=== PATIENT | male | born 1955 | race Caucasian/White ===

== ENCOUNTER 2016-08-15 16:30 | Emergency (ER) | payer OTHER ==
[2016-08-15 16:57] VITALS: BP 104/78; PULSE 81; TEMP 97.8; BMI 31.1
[2016-08-15] MEDS ORDERED: CLINDAMYCIN 600MG PREMIX IVPB 50 ML IVPB ONE (16:58)
--- NOTE | 2016-08-15 16:58 | PDOC ---
History of Present Illness - History of Present Illness Initial Comments: 08/15/16 17:04 Patient is a 61 year old male schizoaffective disorder, IDDM, HTN and HLD who has been sent to the ED from [facility] for lower extremity edema bilaterally and infection to the soles of his feet for several months. The patient complains that his feet are chapped and dry. He states that he applies topical ammonium lactate to his feet for his symptoms but reports little relief. The patient reports that hes been on lasix for the past year but it has not helped his lower extremity swelling. The patient is a poor historian. Denies any pain. <Viviana Olivarez - Last Filed: 08/15/16 17:04> <Patricia Shore - Last Filed: 08/15/16 18:26> - General Chief Complaint: Wound Stated Complaint: FEET SORES Time Seen by Provider: 08/15/16 16:48 Past History <Viviana Olivarez - Last Filed: 08/15/16 17:04> - Past Medical History Diabetes: Yes Hypercholesterolemia: Yes Psychiatric Problems: Yes - Psycho/Social/Smoking Cessation Hx Suicidal Ideation: No Smoking History: Unknown if ever smoked <Patricia Shore - Last Filed: 08/15/16 18:26> - Past Medical History Allergies/Adverse Reactions: Allergies Allergy/AdvReac Type Severity Reaction Status Date / Time No Known Allergies Allergy Verified 08/15/16 17:34 Home Medications: Ambulatory Orders Clotrimazole/Betamethasone Dip [Clotrimazole-Betamethasone Lot] 30 ml TP BID #1 tube 08/15/16 Review of Systems - Review of Systems Comments:: 08/15/16 17:05 GENERAL/CONSTITUTIONAL: No fever or chills. No weakness. HEAD, EYES, EARS, NOSE AND THROAT: No change in vision. No ear pain or discharge. No sore throat. CARDIOVASCULAR: No chest pain or shortness of breath. RESPIRATORY: No cough, wheezing, or hemoptysis. GASTROINTESTINAL: No nausea, vomiting, diarrhea or constipation. GENITOURINARY: No dysuria, frequency, or change in urination. MUSCULOSKELETAL: Lower extremity swelling bilaterally. No joint or muscle pain. No neck or back pain. SKIN: Infection to soles of feet bilaterally. No rash NEUROLOGIC: No headache, vertigo, loss of consciousness, or change in strength/ sensation. <Viviana Olivarez - Last Filed: 08/15/16 17:04> *Physical Exam - Vital Signs Last Vital Signs Temp Pulse Resp BP Pulse Ox 97.8 F 81 18 104/78 94 L 08/15/16 16:50 08/15/16 16:50 08/15/16 16:50 08/15/16 16:50 08/15/16 16:50 <Viviana Olivarez - Last Filed: 08/15/16 17:04> - Vital Signs Last Vital Signs Temp Pulse Resp BP Pulse Ox 97.8 F 81 18 104/78 94 L 08/15/16 16:50 08/15/16 16:50 08/15/16 16:50 08/15/16 16:50 08/15/16 16:50 - Physical Exam Comments: GENERAL: Awake, alert, and fully oriented, in no acute distress HEAD: No signs of trauma EYES: PERRLA, EOMI, sclera anicteric, conjunctiva clear ENT: Auricles normal inspection, hearing grossly normal, nares patent, oropharynx clear without exudates. Moist mucosa NECK: Normal ROM, supple, no lymphadenopathy, JVD, or masses LUNGS: Breath sounds equal, clear to auscultation bilaterally. No wheezes, and no crackles HEART: Regular rate and rhythm, normal S1 and S2, no murmurs, rubs or gallops ABDOMEN: Soft, nontender, normoactive bowel sounds. No guarding, no rebound. No masses EXTREMITIES: Normal range of motion, 2+ pitting edema BLE. No clubbing or cyanosis. No cords, erythema, or tenderness NEUROLOGICAL: Cranial nerves II through XII grossly intact. Normal speech, normal gait SKIN: Warm, Dry, normal turgor, no rashes. B/L plantar surfaces of feet erythematous with thickened devitalized skin. +Warmth. <Patricia Shore - Last Filed: 08/15/16 18:26> ED Treatment Course - LABORATORY CBC & Chemistry Diagram: 08/15/16 17:13 08/15/16 17:13 <Patricia Shore - Last Filed: 08/15/16 18:26> *DC/Admit/Observation/Transfer - Attestations Scribe Attestion: 08/15/16 17:06 Documentation prepared by Viviana Olivarez, acting as medical surgery nurse for Patricia Shore MD. <Viviana Olivarez - Last Filed: 08/15/16 17:04> - Discharge Dispostion Admit: No <Patricia Shore - Last Filed: 08/15/16 18:26> Diagnosis at time of Disposition: Athlete's foot Qualifiers: Laterality: bilateral Qualified Code(s): B35.3 - Tinea pedis - Discharge Dispostion Disposition: HOME Condition at time of disposition: Stable - Prescriptions Prescriptions: Clotrimazole/Betamethasone Dip [Clotrimazole-Betamethasone Lot] 30 ml TP BID #1 tube - Referrals Referrals: Fidencio Rey [Primary Care Provider] - - Patient Instructions Printed Discharge Instructions: DI for Athlete's Foot
[2016-08-15 17:47] LABS: BASOPHIL 0.2 % (0-2.0); EOSINOPHIL 0.8 % (0-4.5); MCH 29.8 pg (25.7-33.7); MCHC 33.2 g/dl (32.0-35.9); MEAN CELL VOLUME 89.7 fl (80-96); MEAN PLT VOLUME 7.9 fl (7.5-11.1); NEUTROPHILS 68.9 % (42.8-82.8); PLATELET COUNT 161 K/MM3 (134-434); RDW 14.2 % (11.9-15.9); WHITE BLOOD COUNT 7.4 K/mm3 (4.0-10.0)
[2016-08-15 18:20] LABS: ALBUMIN 3.8 g/dl (3.4-5.0); ALK PHOS 78 U/L (45-117); ANION GAP 10 (8-16); BILIRUBIN,TOTAL 0.5 mg/dL (0.2-1.0); CALCIUM 8.7 mg/dL (8.5-10.1); CO2 27 mmol/L (21-32); CREATININE 1.2 mg/dL (0.7-1.3); GLUCOSE,RANDOM 84 mg/dL (74-106); SGOT/AST 13 U/L (15-37); SGPT/ALT 19 U/L (12-78); TOT PROT 7.2 g/dl (6.4-8.2)
== END 2016-08-15 20:26 | disposition home or self-care (01) ==
LOC: JER 16:30
DX: B35.3 Tinea pedis (principal); I10 Essential (primary) hypertension; E78.00 Pure hypercholesterolemia, unspecified; E11.9 Type 2 diabetes mellitus without complications; Z79.4 Long term (current) use of insulin; F25.9 Schizoaffective disorder, unspecified
CPT/HCPCS: 36415; 80053; 85025; 87040; 96365; 99283-25

== ENCOUNTER 2021-04-15 14:24 | Emergency (ER) | payer OTHER ==
[2021-04-15 15:13] VITALS: BP 136/80; PULSE 67; TEMP 97.9; BMI 29.8
== END 2021-04-16 02:59 | disposition home or self-care (01) ==
LOC: JER 14:24
DX: R60.0 Localized edema (principal)
CPT/HCPCS: 93971-TC; 99284-25